=== PATIENT | male | born 1945 | race Caucasian/White ===

== ENCOUNTER 2016-03-10 00:02 | Observation (INO) | payer MEDICARE ==
[2016-03-10] VITALS (9 sets, daily range): BP systolic 113–155; BP diastolic 61–75; PULSE 52–149; RESP 16–20; TEMP 98.6; O2SAT 95–98
[~2016-03-10] VITALS: Ht 177.8 cm; Wt 90.0 kg
[~2016-03-10 00:02] MED LIST: GLIM4TAB PO; LANTUS2P SQ; METF1000 PO
[2016-03-10] MEDS ORDERED: SODIUM CHLORIDE 0.9% FLUSH 5 ML FLUSH IVF PRN (00:30)
[2016-03-10] MEDS ORDERED: DILTIAZEM INJ 125 MG in SODIUM CHLORIDE 0.9% INJ 100 ML IV SCH (00:30)
[2016-03-10] MEDS ORDERED: DILTIAZEM HCL 25 MG/5 ML VIAL IV ONE ×2 (00:30)
[2016-03-10 00:43] LABS: AUTOMATED NEUTROPHIL # 4.5 TH/MM3 (1.8-7.7); BASOPHIL # 0.2 TH/MM3 (0-0.2); BASOPHIL % 2.3 % (0.0-2.0); EOSINOPHIL # 0.2 TH/MM3 (0-0.4); EOSINOPHIL % 1.8 % (0.0-4.0); HEMATOCRIT 40.2 % (39.0-51.0); HEMO FLAGS DIFF FINAL; LYMPH % 37.5 % (9.0-44.0); LYMPHOCYTE # 3.3 TH/MM3 (1.0-4.8); MEAN CELL VOLUME 96.4 FL (80.0-100.0); MEAN CORPUSCULAR HEMOGLOBIN 33.1 PG (27.0-34.0); MEAN CORPUSCULAR HGB CONC 34.4 % (32.0-36.0); MONO % 7.8 % (0.0-8.0); NEUT % 50.6 % (16.0-70.0); PLATELET COUNT 333 TH/MM3 (150-450); RED BLOOD COUNT 4.16 MIL/MM3 (4.50-5.90); RED CELL DISTRIBUTION WIDTH 14.1 % (11.6-17.2); WHITE BLOOD COUNT 8.8 TH/MM3 (4.0-11.0)
--- NOTE | 2016-03-10 00:53 | RADRPT ---
EXAM DATE/TIME: 03/10/2016 00:38 [facility] COMPARISON: No previous studies available for comparison. INDICATIONS : Palpitations. MEDICAL HISTORY : AFIB, Diabetes SURGICAL HISTORY : None. ENCOUNTER: Initial ACUITY: 2 days PAIN SCORE: 0/10 LOCATION: Bilateral chest FINDINGS: A single view of the chest demonstrates the lungs to be symmetrically aerated without evidence of mas s, infiltrate or effusion. The cardiomediastinal contours are unremarkable. Osseous structures are intact. CONCLUSION: Normal examination for a patient of this age. Storm Day MD on March 10, 2016 at 0:52 Board Certified Radiologist. This report was verified electronically.
[2016-03-10 00:54] LABS: APTT (PATIENT) 27.3 SEC (24.3-30.1); PROTHROMBIN TIME - PATIENT 10.7 SEC (9.8-11.6)
[2016-03-10 01:08] LABS: ANION GAP 10 MEQ/L (5-15); BICARBONATE 25.8 MEQ/L (21.0-32.0); BLOOD UREA NITROGEN 10 MG/DL (7-18); CHLORIDE 107 MEQ/L (98-107); GLOMERULAR FILTRATION RATE 110 ML/MIN (>89); MAGNESIUM 1.8 MG/DL (1.5-2.5); POTASSIUM 3.3 MEQ/L (3.5-5.1); SODIUM (NA) 143 MEQ/L (136-145)
--- NOTE | 2016-03-10 01:25 | PD ---
HPI Chief Complaint: Cardiac Complaint Time Seen by Provider: 00:26 Travel History International Travel<30 days: No Contact w/Intl Traveler<30days: No Traveled to known affect area: No History of Present Illness HPI 62-year-old male arrives here complaining of palpitations. This started about one half hours prior to ER arrival. Started at rest. He reports a very mild retrosternal chest discomfort. He reports history of atrial fibrillation about 10 years ago. It was managed in the ER where he was treated he was discharged home. He reports taking medication for about 1 year afterward, however is unsure of the name. Today was a normal day for the patient. He denies any recent illness. Follow-up with Dr. Oliveros. [facility] Past Medical History Arthritis: Yes Atrial Fibrillation: Yes Cancer: No Cardiovascular Problems: No High Cholesterol: Yes COPD: Yes Diabetes: Yes Patient Takes Glucophage: Yes Diminished Hearing: Yes Endocrine: Yes Gastrointestinal Disorders: Yes (GERD) Genitourinary: No Hepatitis: Yes (MORTICIAN) Hiatal Hernia: No Hypertension: Yes Immune Disorder: No Musculoskeletal: No Neurologic: No Psychiatric: No Reproductive: No Respiratory: No Thyroid Disease: No Tetanus Vaccination: Unknown Influenza Vaccination: Yes Past Surgical History AICD: No Genitourinary Surgery: No Joint Replacement: No Pacemaker: No Other Surgery: Yes Social History Alcohol Use: No Tobacco Use: No Substance Use: No Allergies-Medications (Allergen,Severity, Reaction): Coded Allergies: Shellfish (Verified Allergy, Unknown, 03/10/16) NOT ALLERGIC TO INDIVIDUAL SHELLFISH--DYSPNEA & HIVES WITH KANA MELCHOR TWICE Reported Meds & Prescriptions Reported Meds & Active Scripts Active Reported Metformin (Metformin HCl) 1,000 Mg Tab 1,000 Mg PO BIDPC 90 Days With meals Lantus Inj (Insulin Glargine) 1,000 Unit/10 Ml Vial 50 Units SQ DIRECTED Glimepiride 4 Mg Tab 4 Mg PO DAILY Take with breakfast or first main meal Review of Systems Except as stated in HPI: all other systems reviewed are Neg Physical Exam Narrative GENERAL: 70 yo M WNWD NAD SKIN: Warm and dry. HEAD: Atraumatic. Normocephalic. EYES: Pupils equal and round. No scleral icterus. No injection or drainage. ENT: No nasal bleeding or discharge. Mucous membranes pink and moist. NECK: Trachea midline. No JVD. CARDIOVASCULAR: Tachycardia. Irregular. RESPIRATORY: No accessory muscle use. Clear to auscultation. Breath sounds equal bilaterally. GASTROINTESTINAL: Abdomen soft, non-tender, nondistended. Hepatic and splenic margins not palpable. MUSCULOSKELETAL: Extremities without clubbing, cyanosis, or edema. No obvious deformities. NEUROLOGICAL: Awake and alert. No obvious cranial nerve deficits. Motor grossly within normal limits. Five out of 5 muscle strength in the arms and legs. Normal speech. PSYCHIATRIC: Appropriate mood and affect; insight and judgment normal. Data Data Last Documented VS Vital Signs Date Time Temp Pulse Resp B/P Pulse Ox O2 Delivery O2 Flow Rate FiO2 03/10/16 01:08 86 16 127/75 98 Room Air 03/10/16:17 98.6 VS reviewed Orders Electrocardiogram (03/10/16:26) Basic Metabolic Panel (Bmp) (03/10/16:26) Ckmb (Isoenzyme) Profile (03/10/16:) Complete Blood Count With Diff (03/10/16:) Magnesium (Mg) (03/10/16:) Prothrombin Time / Inr (Pt) (03/10/16:) Act Partial Throm Time (Ptt) (03/10/16:) Troponin I (03/10/16:) Chest, Single Ap (03/10/16:) Ecg Monitoring (03/10/16:26) Bilateral Bp Monitoring (03/10/16:) Iv Access Insert/Monitor (03/10/16:) Oximetry (03/10/16:) Oxygen Administration (03/10/16:26) Sodium Chloride 0.9% Flush (Ns Flush) (03/10/16 00:30) Diltiazem Inj (Cardizem Inj) (03/10/16 00:30) Diltiazem Inj (Cardizem Inj) (03/10/16 00:30) Diltiazem Inj (Cardizem Inj) (03/10/16 00:30) Potassium Chloride (Kcl) (03/10/16 01:30) Admit Order (Ed Use Only) (03/10/16 02:22) Thyroid Stimulating Hormone (03/10/16 00:30) Labs Laboratory Tests Test 03/10/16 00:30 White Blood Count 8.8 TH/MM3 Red Blood Count 4.16 MIL/MM3 Hemoglobin 13.8 GM/DL Hematocrit 40.2 % Mean Corpuscular Volume 96.4 FL Mean Corpuscular Hemoglobin 33.1 PG Mean Corpuscular Hemoglobin 34.4 % Concent Red Cell Distribution Width 14.1 % Platelet Count 333 TH/MM3 Mean Platelet Volume 7.9 FL Neutrophils (%) (Auto) 50.6 % Lymphocytes (%) (Auto) 37.5 % Monocytes (%) (Auto) 7.8 % Eosinophils (%) (Auto) 1.8 % Basophils (%) (Auto) 2.3 % Neutrophils # (Auto) 4.5 TH/MM3 Lymphocytes # (Auto) 3.3 TH/MM3 Monocytes # (Auto) 0.7 TH/MM3 Eosinophils # (Auto) 0.2 TH/MM3 Basophils # (Auto) 0.2 TH/MM3 CBC Comment DIFF FINAL Differential Comment Prothrombin Time 10.7 SEC Prothromb Time International 1.0 RATIO Ratio Activated Partial 27.3 SEC Thromboplast Time Sodium Level 143 MEQ/L Potassium Level 3.3 MEQ/L Chloride Level 107 MEQ/L Carbon Dioxide Level 25.8 MEQ/L Anion Gap 10 MEQ/L Blood Urea Nitrogen 10 MG/DL Creatinine 0.71 MG/DL Estimat Glomerular Filtration 110 ML/MIN Rate Random Glucose 76 MG/DL Calcium Level 9.2 MG/DL Magnesium Level 1.8 MG/DL Total Creatine Kinase 60 U/L Troponin I LESS THAN 0.02 NG/ML Thyroid Stimulating Hormone 3.460 uIU/ML 3rd Gen [facility] Medical Decision Making Medical Screen Exam Complete: Yes Emergency Medical Condition: Yes Medical Record Reviewed: Yes Differential Diagnosis NSTEMI, unstable angina, coronary vasospasm, PE, PTX, aortic dissection, pericarditis, myocarditis, endocarditis, PNA, esophageal disease, aneurysm, musculoskeletal etiologies, anxiety, cocaine/sympathomimetic abuse Narrative Course EKG reveals atrial fibrillation with rapid ventricular response at a rate of 140 repeat EKG sinus rate 85 q waves V1 and V2 CBC & BMP Diagram 03/10/16 00:30 Tn < 0.02 Coags 10.7 / 1.0 / 27.3 Last 24 hours Impressions Chest X-Ray 03/10/16 0026 Signed Impressions: Service Date/Time: Thursday, March 10, 2016 00:38 - CONCLUSION: Normal examination for a patient of this age. Storm Day MD The patient received diltiazem with good effect. He converted to sinus rhythm. He agrees to stay for evaluation by cardiology and possible initiation of rate control agent and anticoagulation. Diagnosis Primary Impression: Atrial fibrillation Qualified Code: I48.0 - Paroxysmal atrial fibrillation Admitting Information Admitting Physician Requests: Observation Nicho Lopez MD Mar 10, 2016 01:25
[2016-03-10] MEDS ORDERED: POTASSIUM CHLORIDE 20 MEQ CONTROLLED RELEASE TAB PO ONE (01:30)
[2016-03-10 01:35] LABS: CREATINE KINASE 60 U/L (39-308)
--- NOTE | 2016-03-10 02:25 | HHI.HP ---
HPI Service Family Medicine Primary Care Physician Guillermo Oliveros MD Admission Diagnosis Diagnoses: International Travel<30 Days: No Contact w/Intl Traveler<30days: No Known Affected Area: No History of Present Illness This is a 70 yo with a remote history of A-fib. He states approx 10 years ago he went into A-Fib, he was placed on unknown medication for a few months, then sates he no longer required the medications. He reports around 11:15pm he was having difficulty sleeping and felt that his heart was beating fast. He denies CP, but did feel discomfort. He denies SOB or any trouble breathing. Prior to this event he had been feeling like his normal health. In the ER patient was given a dose of cardizem and his rate converted to regular sinus, HR in the 80s. He currently feels well and is asking to go home. (Vaishali Copeland MD R3) Review of Systems Constitutional: DENIES: Fever Eyes: DENIES: Blurred vision, Diplopia Ears, nose, mouth, throat: DENIES: Tinnitus, Hearing loss Respiratory: DENIES: Cough Cardiovascular: COMPLAINS OF: Palpitations, DENIES: Chest pain, Dyspnea on Exertion Gastrointestinal: DENIES: Abdominal pain, Diarrhea, Nausea, Vomiting Genitourinary: DENIES: Urgency, Hematuria, Dysuria Musculoskeletal: COMPLAINS OF: Muscle aches, DENIES: Joint pain Integumentary: DENIES: Rash Hematologic/lymphatic: COMPLAINS OF: Bruising Neurologic: DENIES: Abnormal gait Psychiatric: DENIES: Mood changes (Vaishali Copeland MD R3) Past Family Social History Past Medical History - Type 2 diabetes mellitus - Dverticulosis - colonoscopy 2005 - biopsy showed changes of "early tubular adenoma" Past Surgical History - carpal tunnel release - arthroscoptic knee surgery - T&A - Patient believes he had a colonoscopy done less than 10 years ago with no significant findings reported Reported Medications Last Impressions Chest X-Ray 03/10/16 0026 Signed Impressions: Service Date/Time: Tuesday, March 10, 2016 00:38 - CONCLUSION: Normal examination for a patient of this age. Storm Day MD (Vaishali Copeland MD R3) Allergies: Coded Allergies: Shellfish (Verified Allergy, Unknown, 03/10/16) NOT ALLERGIC TO INDIVIDUAL SHELLFISH--DYSPNEA & HIVES WITH LOBSTER NEWBERG TWICE Family History Father: approx 89. 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 SKIN: No rashes, ecchymoses or lesions. Cool and dry. HEAD: Atraumatic. Normocephalic. No temporal or scalp tenderness. EYES: Pupils equal round and reactive. Extraocular motions intact. No scleral icterus. No injection or drainage. ENT: Nose without bleeding, purulent drainage or septal hematoma. Throat without erythema, tonsillar hypertrophy or exudate. Uvula midline. Airway patent. NECK: Trachea midline. No JVD or lymphadenopathy. Supple, nontender, no meningeal signs. CARDIOVASCULAR: Regular rate and rhythm without murmurs, gallops, or rubs. RESPIRATORY: Clear to auscultation. Breath sounds equal bilaterally. No wheezes , rales, or rhonchi. GASTROINTESTINAL: Abdomen soft, non-tender, nondistended. No hepato-splenomegaly , or palpable masses. No guarding. MUSCULOSKELETAL: Extremities without clubbing, cyanosis, or edema. No joint tenderness, effusion, or edema noted. No calf tenderness. Negative Homans sign bilaterally. NEUROLOGICAL: Awake and alert. Motor and sensory grossly within normal limits. Normal speech. Laboratory Laboratory Tests Test 03/10/16 00:30 White Blood Count 8.8 Red Blood Count 4.16 Hemoglobin 13.8 Hematocrit 40.2 Mean Corpuscular Volume 96.4 Mean Corpuscular Hemoglobin 33.1 Mean Corpuscular Hemoglobin 34.4 Concent Red Cell Distribution Width 14.1 Platelet Count 333 Mean Platelet Volume 7.9 Neutrophils (%) (Auto) 50.6 Lymphocytes (%) (Auto) 37.5 Monocytes (%) (Auto) 7.8 Eosinophils (%) (Auto) 1.8 Basophils (%) (Auto) 2.3 Neutrophils # (Auto) 4.5 Lymphocytes # (Auto) 3.3 Monocytes # (Auto) 0.7 Eosinophils # (Auto) 0.2 Basophils # (Auto) 0.2 CBC Comment DIFF FINAL Differential Comment Prothrombin Time 10.7 Prothromb Time International 1.0 Ratio Activated Partial 27.3 Thromboplast Time Sodium Level 143 Potassium Level 3.3 Chloride Level 107 Carbon Dioxide Level 25.8 Anion Gap 10 Blood Urea Nitrogen 10 Creatinine 0.71 Estimat Glomerular Filtration 110 Rate Random Glucose 76 Calcium Level 9.2 Magnesium Level 1.8 Total Creatine Kinase 60 Troponin I LESS THAN 0.02 (Vaishali Copeland MD R3) Result Diagram: 03/10/160 03/10/1629 Imaging Last Impressions Chest X-Ray 03/10/166 Signed Impressions: Service Date/Time: Thursday, March 10, 2016 00:38 - CONCLUSION: Normal examination for a patient of this age. Storm Day MD (Vaishali Copeland MD R3) Assessment and Plan Assessment and Plan 70 yo male presents to ER with new onset A-Fib, controlled after 1 dose of IV cardizem. Code Status DNR Discussed Condition With ER physician natali Muñiz (Vaishali Copeland MD R3) Attending Attestation Patient seen and examined. Case reviewed and discussed with the resident team. Agree with plan of care as discussed with me and documented in the resident note. he has been in NSR for many hours since the wee hours of the morning and wishes to go home today. Had a long discussion about a fib and the potential consequences and treatments. Explained that the more often someone goes into a fib the more likely they were to reenter that state. We also discussed and he is aware that there is an increased risk of CVA as well as rate control can be a problem if he goes back into a fib again. I explained if this was a problem that there is ablation and/or medicines to help prevent consequences of a fib. Dr Oliveros is his long trusted Physician and he will follow up with him. Also, Mr Cecy declared he was leaving the hospital "no matter what at about 3 pm and would not spend the night here even if Cardiology did not see him today. On discussion with Dr Alexander who is seeing him today, he can be given meds for rate control even if he leaves AMA as we do not want him to have any problems. ( Fanny James MD) Problem List: (1) Atrial fibrillation Status: Acute Plan: Patient with hx of A-fib in the past. Initial EKG does show A-Fib with RVR HR 150s. EKG after the cardizem is regular sinus with HR 80s. He is currently asx. Initial troponin 0.02. - CHADS2 vasc score 2, moderate risk - Started on therapeutic Lovenox, may consider xarelto if long tern anticoagulation needed - Currently rate controlled after Cardizem, BP & HR wnl - Metoprolol 25 mg PO BID initiated - telemetry - Cards consulted, does not have director of psychology - ECHO ordered - TSH ordered (2) Type 2 diabetes mellitus with unspecified complications Status: Chronic Plan: Continue home medications metformin and glimperide (3) FEN Status: Acute Plan: Fluids: HLIV Electrolytes: K 3.3, given 40 meq KCl Nutrition: Heart healthy diet DVT prophylaxis: lovenox (therapeutic) (Vaishali Copeland MD R3) Physician Certification 2 Midnight Certification Type: Admission for Inpatient Services Order for Inpatient Services The services are ordered in accordance with Medicare regulations or non- Medicare payer requirements, as applicable. In the case of services not specified as inpatient-only, they are appropriately provided as inpatient services in accordance with the 2-midnight benchmark. Estimated LOS (days): 2 days is the estimated time the patient will need to remain in the hospital, assuming treatment plan goals are met and no additional complications. Post-Hospital Plan: Home (Vaishali Copeland MD R3) Problem Qualifiers (1) Atrial fibrillation: Qualified Code: I48.0 - Paroxysmal atrial fibrillation Vaishali Copeland MD R3 Mar 10, 2016 02:25 Fanny James MD Mar 10, 2016 13:20
[2016-03-10] MEDS ORDERED: GLIMEPIRIDE 4 MG TAB PO SCH (09:00)
[2016-03-10] MEDS ORDERED: METOPROLOL TARTRATE 25 MG TAB PO SCH (09:00)
[2016-03-10] MEDS ORDERED: metFORMIN HCL 500 MG TAB PO SCH (09:00)
[2016-03-10] MEDS ORDERED: ENOXAPARIN SODIUM 100 MG/ML SYRINGE SQ SCH (09:00)
[2016-03-10] MEDS ORDERED: ASPI325T PO (13:09)
[2016-03-10] MEDS ORDERED: METO25TA3 PO (13:09)
--- NOTE | 2016-03-10 13:09 | HHI.DCPOC ---
Discharge Care Plan Diagnosis: (1) Atrial fibrillation Goals to Promote Your Health * To prevent worsening of your condition and complications * To maintain your health at the optimal level Directions to Meet Your Goals Take your medications as prescribed Follow your dietary instruction Follow activity as directed Keep your appointments as scheduled Take your immunizations and boosters as scheduled If your symptoms worsen call your PCP, if no PCP go to Urgent Care Center or Emergency Room Smoking is Dangerous to Your Health. Avoid second hand smoke Call the 24-hour hour crisis hotline for domestic abuse at Sylvester Alexander MD R3 Mar 10, 2016 13:09
--- NOTE | 2016-03-10 14:20 | EKG ---
Date Performed: 03/10/2016 Time Performed: 00:08:35 PTAGE: 70 years EKG: ATRIAL FIBRILLATION WITH RAPID VENTRICULAR RESPONSE BORDERLINE LEFT AXIS DEVIATION MODERATE ST DEPRESSION ABNORMAL ECG PREVIOUS TRACING : 03/13/2013 09.10 Since previous tracing, A fib with RVR is new. ST depressio n is new DOCTOR: Joe Morrison Interpretating Date/Time 03/10/2016 14:19:14
--- NOTE | 2016-03-10 14:20 | EKG ---
Date Performed: 03/10/2016 Time Performed: 01:05:34 PTAGE: 70 years EKG: Sinus rhythm WITH SINUS ARRHYTHMIA MARKED LEFT AXIS DEVIATION SEPTAL MYOCARDIAL INFARCTION ABNORMAL ECG INTERPRET ATION BASED ON A DEFAULT AGE OF 40 YEARS PREVIOUS TRACING : 03/10/2016 00.08 Since previous tracing, sinus rhythm has replaced a f ib. ST changes have resolved. DOCTOR: Joe Morrison Interpretating Date/Time 03/10/2016 14:18:41
--- NOTE | 2016-03-10 21:00 | EC ---
Study Study Date:03/10/2016 STUDY CONCLUSIONS SUMMARY LEFT VENTRICLE: The cavity size was normal. Systolic function was normal. The estimated ejection fraction was in the range of 65% to 70%. Wall motion was normal; there were no regional wall motion abnormalities. If LV function is below 40, please consider prescribing an ACEI or ARB or document rationale for non-use. PROCEDURE DATA STUDY STATUS: Elective. Procedure: Transthoracic echocardiography. Image quality was good. Scanning was performed from the parasternal, apical, and subcostal acoustic windows. Study completion: The patient tolerated the procedure well. Transthoracic echocardiography. M-mode, complete 2D, complete spectral Doppler, and color Doppler. Height: Height: 70in. Weight: Weight: 197.6lb. Body mass index: BMI: 28.4kg/m^2. Body surface area: BSA: 2.08m^2. Patient status: Inpatient. CARDIAC ANATOMY LEFT VENTRICLE: The cavity size was normal. Systolic function was normal. The estimated ejection fraction was in the range of 65% to 70%. Wall motion was normal; there were no regional wall motion abnormalities. AORTIC VALVE: The valve appears to be grossly normal. Doppler: There was no stenosis. No significant regurgitation. Valve area: 2.72cm^2(VTI). Indexed valve area: 1.31cm^2/m^2 (VTI). Valve area: 2.58cm^2 (Vmax). Indexed valve area: 1.24cm^2/m^2 (Vmax). Mean gradient: 3mm Hg (S). MITRAL VALVE: The valve appears to be grossly normal. Doppler: There was no evidence for stenosis. Trace regurgitation. Peak gradient: 2mm Hg (D). LEFT ATRIUM: The atrium was normal in size. RIGHT VENTRICLE: The cavity size was normal. PULMONIC VALVE: The valve appears to be grossly normal. Doppler: There was no evidence for stenosis. No significant regurgitation. TRICUSPID VALVE: The valve appears to be grossly normal. Doppler: There was no evidence for stenosis. Trace regurgitation. PERICARDIUM: There was no pericardial effusion. Patient weight: 197.6lb _Ejection fraction:_ 65-75% _Fractional shortening:_ 32% up to 5Kg 5-11.5Kg 11.6-22.9Kg 23-45Kg 45-57Kg Aortic Root 7-13 <17 13-22 17-27 17-27 LA diam 6-13 <23 24-38 33-47 37-40 RVID 10-17 7-15 7-15 7-18 8-17 LVIDd 12-22 <32 24-38 33-47 37-40 LVPW 2-4 3-6 5-7 6-8 7-8 IVS 2-4 3-6 5-7 6-8 7-8 BASIC MEASUREMENTS ADULT NORMAL Left ventricle LV internal dimension, ED, chordal 49 mm 43-52 level, PLAX LV internal dimension, ES, chordal 31.6 mm 23-38 level, PLAX Fractional shortening, chordal level, 36 % >29 PLAX LV posterior wall thickness, ED 8.79 mm IVS/LVPW ratio, ED 1 <1.3 Ventricular septum Septal thickness, ED 8.79 mm Aortic valve Leaflet separation 25 mm 15-26 Aorta Root diameter, ED 33 mm Left atrium Anterior-posterior dimension 32 mm Anterior-posterior dimension index 1.54 cm/m^2 <2.2 BASIC MEASUREMENTS ADULT NORMAL Aortic valve Leaflet separation 25 mm 15-26 DOPPLER MEASUREMENTS ADULT NORMAL Aortic valve Peak velocity, S 123 cm/s Mean velocity, S 80.7 cm/s VTI, S 21.5 cm Mean gradient, S 3 mm Hg Valve area, VTI 2.72 cm^2 Valve area index, VTI 1.31 cm^2/m^2 Valve area, Vmax 2.58 cm^2 Valve area index, Vmax 1.24 cm^2/m^2 Mitral valve Peak E-wave velocity 75 cm/s Peak A-wave velocity 86.9 cm/s Peak gradient, D 2 mm Hg Peak E/A ratio 0.9 Pulmonic valve Peak velocity, S 50.2 cm/s LEGEND: Mean values are shown as u=mean value. Asterisk (*) roe values outside specified normal range. Prepared and signed by Flako Lopez [id number]
[2016-03-11] MEDS ORDERED: METO25TA3 PO (12:19)
[2016-06-10] MEDS ORDERED: ZOSTINJ SQ (15:29)
[2016-06-18] MEDS ORDERED: METF1000 PO (11:25)
[2016-06-18] MEDS ORDERED: LANTUS2P SQ (11:25)
[2016-06-18] MEDS ORDERED: GLIM4TAB PO (11:25)
[2016-06-18] MEDS ORDERED: AZIT250T3 PO (15:38)
[2016-06-23] MEDS ORDERED: CEFU1TAB20 PO (10:29)
== END 2016-03-10 16:30 | disposition left against medical advice (07) ==
LOC: NEPC 00:02 → NEDA 02:24 → NEDH 06:35
PROVIDERS: ADMIT Family Medicine; ATTEND Family Medicine
DX: I48.0 Paroxysmal atrial fibrillation (principal); R00.2 Palpitations; R07.89 Other chest pain; K75.9 Inflammatory liver disease, unspecified; J44.9 Chronic obstructive pulmonary disease, unspecified; I10 Essential (primary) hypertension; E11.9 Type 2 diabetes mellitus without complications; K21.9 Gastro-esophageal reflux disease without esophagitis; Z87.891 Personal history of nicotine dependence; Z79.4 Long term (current) use of insulin
CPT/HCPCS: 71010; 80048; 82550; 83735; 83880; 84443; 84484; 85025; 85610; 85730; 93005; 93306; 96374; 99285; G0378; J1650

== ENCOUNTER 2017-03-02 14:40 | Emergency (ER) | payer MEDICARE ==
[~2017-03-02] VITALS: Ht 177.8 cm; Wt 95.0 kg
[~2017-03-02 14:40] MED LIST changes: +ASPI-183 PO; +AZIT250T3 PO; +CEFU1TAB20 PO; +ZOLP5TAB3 PO; +ZOSTINJ SQ
[2017-03-02 14:51] VITALS: BP 173/78; PULSE 99; RESP 17; TEMP 98.2; O2SAT 97
--- NOTE | 2017-03-02 15:35 | RADRPT ---
EXAM DATE/TIME: 03/02/2017 15:10 [facility] COMPARISON: No previous studies available for comparison. INDICATIONS : Right flank pain with history of renal stones. ORAL CONTRAST: No oral contrast ingested. RADIATION DOSE: 8.51 CTDIvol (mGy) MEDICAL HISTORY : Renal calculi. Chronic obstructive pulmonary disease. SURGICAL HISTORY : None. ENCOUNTER: Initial ACUITY: 1 day PAIN SCALE: 6/10 LOCATION: Right flank TECHNIQUE: Volumetric scanning of the abdomen and pelvis was performed. Using automated exposure control and ad justment of the mA and/or kV according to patient size, radiation dose was kept as low as reasonably achievable to obtain optimal diagnostic quality images. DICOM format image data is available electro nically for review and comparison. FINDINGS: LOWER LUNGS: The visualized lower lungs are clear. LIVER: Moderate to severe diffuse low density without lesion. There is no dilation of the biliary tree. No calcified gallstones. SPLEEN: Normal size without lesion. PANCREAS: Within normal limits. KIDNEYS: Normal in size and shape. There is no mass, stone, or hydronephrosis. There is a cyst of the left lo wer pole kidney measuring 6.2 cm. ADRENAL GLANDS: Within normal limits. VASCULAR: There is no aortic aneurysm. There is mild atherosclerotic disease. BOWEL/MESENTERY: Small hiatal hernia is present. Small bowel demonstrates no abnormality. Appendix is normal. There is diffuse colonic diverticulosis that is most severe in the sigmoid colon. Most of the sigmoid colon d emonstrates wall thickening and there is mild surrounding inflammatory change. In the left pelvis adj acent to the internal iliac vessels there is a soft tissue density measuring approximately 4 cm. No f ree air or free fluid is present. ABDOMINAL WALL: Within normal limits. RETROPERITONEUM: There is a single mildly enlarged left para-aortic lymph node measuring 10 mm in short axis diameter. No other lymphadenopathy is visualized. BLADDER: No wall thickening or mass. There are 2 stones in the left urinary bladder with the largest represent ing a giles stone measuring 1.3 x 0.7 cm. REPRODUCTIVE: Prostate gland is enlarged. INGUINAL: There is no lymphadenopathy or hernia. MUSCULOSKELETAL: There are mild degenerative changes of the lumbar spine. CONCLUSION: 1. Abnormal wall thickening, diverticulosis, and surrounding inflammatory change involving most of th e sigmoid colon. There is an abnormal soft tissue density masslike area in the left pelvis measuring 4 cm. It could represent phlegmonous inflammatory changes or lymphadenopathy. The appearance favors a n inflammatory or infectious process. However, malignancy cannot be completely excluded. Suggest andrei elating with the clinical history and suggest imaging followup and/or direct visualization with sigmo idoscopy or colonoscopy. 2. Nonacute findings include hepatic steatosis, moderate atherosclerotic disease, bladder stones, and prostatomegaly. Edy Knight MD on March 02, 2017 at 15:19 Board Certified Radiologist. This report was verified electronically.
[2017-03-02 16:13] LABS: WHITE BLOOD COUNT 7.2 TH/MM3 (4.0-11.0)
[2017-03-02 16:14] LABS: AUTOMATED NEUTROPHIL # 4.7 TH/MM3 (1.8-7.7); BASOPHIL # 0.2 TH/MM3 (0-0.2); BASOPHIL % 2.5 % (0.0-2.0); EOSINOPHIL # 0.1 TH/MM3 (0-0.4); EOSINOPHIL % 1.7 % (0.0-4.0); HEMATOCRIT 36.1 % (39.0-51.0); HEMOGLOBIN 12.3 GM/DL (13.0-17.0); LYMPH % 26.4 % (9.0-44.0); LYMPHOCYTE # 1.9 TH/MM3 (1.0-4.8); MEAN CELL VOLUME 100.4 FL (80.0-100.0); MEAN CORPUSCULAR HEMOGLOBIN 34.1 PG (27.0-34.0); MEAN PLATELET VOLUME 7.6 FL (7.0-11.0); MONO % 4.4 % (0.0-8.0); MONOCYTE # 0.3 TH/MM3 (0-0.9); PLATELET COUNT 446 TH/MM3 (150-450); RED BLOOD COUNT 3.59 MIL/MM3 (4.50-5.90); RED CELL DISTRIBUTION WIDTH 14.9 % (11.6-17.2)
[2017-03-02 16:15] LABS: BILIRUBIN, URINE NEG (NEG); BLOOD, URINE NEG (NEG); GLUCOSE,URINE 1000 mg/dL (NEG); KETONE, URINE NEG (NEG); MUCUS URINE FEW /lpf (OCC); NITRITE,URINE NEG (NEG); URINE COLOR YELLOW (YELLW/STRAW); URINE LEUKOCYTE ESTERASE NEG (NEG)
[2017-03-02 16:27] LABS: PROTHROMBIN TIME - PATIENT 10.5 SEC (9.8-11.6)
[2017-03-02 16:32] LABS: AST (GOT) 20 U/L (15-37); BICARBONATE 28.1 MEQ/L (21.0-32.0); BLOOD UREA NITROGEN 11 MG/DL (7-18); CALCIUM 8.9 MG/DL (8.5-10.1); CHLORIDE 101 MEQ/L (98-107); CREATININE 0.94 MG/DL (0.60-1.30); GLOMERULAR FILTRATION RATE 80 ML/MIN (>89); GLUCOSE,RANDOM 290 MG/DL (74-106); LIPASE 97 U/L (73-393); SODIUM (NA) 136 MEQ/L (136-145)
[2017-03-02 16:33] LABS: ALT (GPT) 34 U/L (12-78)
[2017-03-02 16:35] LABS: ALKALINE PHOSPHATASE 101 U/L (45-117); TOTAL BILIRUBIN ADULT 0.6 MG/DL (0.2-1.0); TOTAL PROTEIN 7.5 GM/DL (6.4-8.2)
[2017-03-02] MEDS ORDERED: IBUP-232 PO (18:03)
[2017-03-02] MEDS ORDERED: METR-1 PO (18:03)
[2017-03-02] MEDS ORDERED: CIPR-9 PO (18:03)
[2017-03-02 18:04] VITALS: BP 137/75; PULSE 86; RESP 16; O2SAT 97
--- NOTE | 2017-03-02 18:05 | PD ---
HPI Chief Complaint: Flank/Kidney Pain Time Seen by Provider: 17:55 Travel History International Travel<30 days: No Contact w/Intl Traveler<30days: No Traveled to known affect area: No History of Present Illness HPI 71-year-old male patient with history of kidney stones, presents to the ER today because he started having right flank pains which he initially rated at a 7 out of 10. He denies any fevers, vomiting, or any other symptoms. He states that the pain with waxing in waning. He states that it resolved now at his pain as currently 0. He denies any fevers, or other issues. Modifying Factors: None Associated Signs & Symptoms: Right flank pain, lower back pain Risk Factors: Kidney stone history PFSH Past Medical History Arthritis: Yes Atrial Fibrillation: Yes Cancer: No Cardiovascular Problems: No High Cholesterol: Yes COPD: Yes Diabetes: Yes Patient Takes Glucophage: No Diminished Hearing: Yes Endocrine: Yes Gastrointestinal Disorders: Yes (GERD) Genitourinary: No Hepatitis: Yes (MORTICIAN) Hiatal Hernia: No Hypertension: Yes Immune Disorder: No Musculoskeletal: No Neurologic: No Psychiatric: No Reproductive: No Respiratory: No Thyroid Disease: No Past Surgical History AICD: No Genitourinary Surgery: No Joint Replacement: No Pacemaker: No Other Surgery: Yes Social History Alcohol Use: No Tobacco Use: No Substance Use: No Allergies-Medications (Allergen,Severity, Reaction): Coded Allergies: shellfish derived (Unverified Allergy, Unknown, 09/29/16) NOT ALLERGIC TO INDIVIDUAL SHELLFISH--DYSPNEA & HIVES WITH KANA MELCHOR TWICE Reported Meds & Prescriptions Reported Meds & Active Scripts Active Lantus Inj (Insulin Glargine) 1,000 Unit/10 Ml Vial 50 Units SQ BID 90 Days Zolpidem (Zolpidem Tartrate) 5 Mg Tab 5 Mg PO HS PRN Cefuroxime (Cefuroxime Axetil) 500 Mg Tab 500 Mg PO BID Azithromycin 250 Mg Tab 250 Mg PO DIRECTED Take 2 tabs (500 mg) on day 1 then 1 tab daily x 4 days. Metformin (Metformin HCl) 1,000 Mg Tab 1,000 Mg PO BIDPC With meals Glimepiride 4 Mg Tab 4 Mg PO DAILY Take with breakfast or first main meal Zostavax Inj (Zoster Vaccine Live) 0.65 Ml Inj 0.65 Ml SQ .ONCE Aspirin 325 Mg Tab 325 Mg PO DAILY Review of Systems Except as stated in HPI: all other systems reviewed are Neg Physical Exam Narrative GENERAL: Well-developed elderly white male patient currently in no acute distress. Awake an oriented 3. SKIN: Focused skin assessment warm/dry. HEAD: Atraumatic. Normocephalic. EYES: Pupils equal and round. No scleral icterus. No injection or drainage. ENT: No nasal bleeding or discharge. Mucous membranes pink and moist. NECK: Trachea midline. No JVD. Supple. CARDIOVASCULAR: Regular rate and rhythm. No murmur appreciated. RESPIRATORY: No accessory muscle use. Clear to auscultation. Breath sounds equal bilaterally. GASTROINTESTINAL: Abdomen soft, non-tender, nondistended. Hepatic and splenic margins not palpable. BACK: No CVA tenderness. No rash. No point tenderness on palpation of the spine. MUSCULOSKELETAL: No obvious deformities. No clubbing. No cyanosis. No edema. NEUROLOGICAL: Awake and alert. No obvious cranial nerve deficits. Motor grossly within normal limits. Normal speech. PSYCHIATRIC: Appropriate mood and affect; insight and judgment normal. Data Data Last Documented VS Vital Signs Date Time Temp Pulse Resp B/P (MAP) Pulse Ox O2 Delivery O2 Flow Rate FiO2 03/02/17 14:51 98.2 99 17 173/78 (109) 97 Orders Orders Complete Blood Count With Diff (03/02/17 14:51) Comprehensive Metabolic Panel (03/02/17 14:51) Urinalysis - C+S If Indicated (03/02/17 14:51) Ct Abd/Pel W/O Iv Contrast (03/02/17 14:51) Lipase (03/02/17 14:51) Act Partial Throm Time (Ptt) (03/02/17 14:51) Prothrombin Time / Inr (Pt) (03/02/17 14:51) Labs Laboratory Tests Test 03/02/17 15:24 White Blood Count 7.2 TH/MM3 Red Blood Count 3.59 MIL/MM3 Hemoglobin 12.3 GM/DL Hematocrit 36.1 % Mean Corpuscular Volume 100.4 FL Mean Corpuscular Hemoglobin 34.1 PG Mean Corpuscular Hemoglobin Concent 34.0 % Red Cell Distribution Width 14.9 % Platelet Count 446 TH/MM3 Mean Platelet Volume 7.6 FL Neutrophils (%) (Auto) 65.0 % Lymphocytes (%) (Auto) 26.4 % Monocytes (%) (Auto) 4.4 % Eosinophils (%) (Auto) 1.7 % Basophils (%) (Auto) 2.5 % Neutrophils # (Auto) 4.7 TH/MM3 Lymphocytes # (Auto) 1.9 TH/MM3 Monocytes # (Auto) 0.3 TH/MM3 Eosinophils # (Auto) 0.1 TH/MM3 Basophils # (Auto) 0.2 TH/MM3 CBC Comment DIFF FINAL Differential Comment Prothrombin Time 10.5 SEC Prothromb Time International Ratio 1.0 RATIO Activated Partial Thromboplast Time 26.4 SEC Urine Color YELLOW Urine Turbidity CLEAR Urine pH 5.0 Urine Specific [place] 1.026 Urine Protein NEG mg/dL Urine Glucose (UA) 1000 mg/dL Urine Ketones NEG mg/dL Urine Occult Blood NEG Urine Nitrite NEG Urine Bilirubin NEG Urine Urobilinogen LESS THAN 2.0 MG/DL Urine Leukocyte Esterase NEG Urine WBC 1 /hpf Urine Mucus FEW /lpf Microscopic Urinalysis Comment CULT NOT INDICATED Blood Urea Nitrogen 11 MG/DL Creatinine 0.94 MG/DL Random Glucose 290 MG/DL Total Protein 7.5 GM/DL Albumin 4.0 GM/DL Calcium Level 8.9 MG/DL Alkaline Phosphatase 101 U/L Aspartate Amino Transf (AST/SGOT) 20 U/L Alanine Aminotransferase (ALT/SGPT) 34 U/L Total Bilirubin 0.6 MG/DL Sodium Level 136 MEQ/L Potassium Level 3.9 MEQ/L Chloride Level 101 MEQ/L Carbon Dioxide Level 28.1 MEQ/L Anion Gap 7 MEQ/L Estimat Glomerular Filtration Rate 80 ML/MIN Lipase 97 U/L [facility] Medical Decision Making Medical Screen Exam Complete: Yes Emergency Medical Condition: Yes Medical Record Reviewed: Yes Interpretation(s) Laboratory Tests Test 03/02/17 15:24 Red Blood Count 3.59 MIL/MM3 (4.50-5.90) Hemoglobin 12.3 GM/DL (13.0-17.0) Hematocrit 36.1 % (39.0-51.0) Mean Corpuscular Volume 100.4 FL (80.0-100.0) Mean Corpuscular Hemoglobin 34.1 PG (27.0-34.0) Basophils (%) (Auto) 2.5 % (0.0-2.0) Urine Glucose (UA) 1000 mg/dL (NEG) Urine Mucus FEW /lpf (OCC) Random Glucose 290 MG/DL (74-106) Estimat Glomerular Filtration Rate 80 ML/MIN (>89) Last 24 hours Impressions Abdomen/Pelvis CT 03/02/17 5171 Signed Impressions: Service Date/Time: Tuesday, March 02, 2017 15:10 - CONCLUSION: 1. Abnormal wall thickening, diverticulosis, and surrounding inflammatory change involving most of the sigmoid colon. There is an abnormal soft tissue density masslike area in the left pelvis measuring 4 cm. It could represent phlegmonous inflammatory changes or lymphadenopathy. The appearance favors an inflammatory or infectious process. However, malignancy cannot be completely excluded. Suggest correlating with the clinical history and suggest imaging followup and/or direct visualization with sigmoidoscopy or colonoscopy. 2. Nonacute findings include hepatic steatosis, moderate atherosclerotic disease, bladder stones, and prostatomegaly. Edy Knight MD Differential Diagnosis Renal colic versus pyelonephritis versus musculoskeletal versus cholecystitis versus other acute intra-abdominal processes Narrative Course Lab work did not show any signs of significant UTI or significant metabolic issues. He has mildly elevated glucose levels. CAT scans did not show any kidney stones, does show some signs of inflammation around the diverticulosis in the sigmoid area. I suspect underlying diverticulitis. There is also a spotted left renal mass but patient has no tenderness on palpation in that area. This is not likely to be new. However, I have notified the patient that he will need further follow-up for this issue. I do not see any signs of other acute intra-abdominal processes. Vital signs are stable. Patient has walking around in completely pain-free now. Abdomen is not tender. My plan would be to release him at this point with follow-up to primary care physician. We will treat him for diverticulitis. Return for any worsening in pain or new symptoms as needed. The plan has been discussed with him in he states understanding. Diagnosis Primary Impression: Abdominal pain Med/Other Pt SpecificInfo: Prescription(s) given Scripts Metronidazole (Flagyl) 500 Mg Tab 500 MG PO TID for Infection for 7 Days, TAB 0 Refills Prov: Kin Cueto MD 03/02/17 Ibuprofen (Ibuprofen) 600 Mg Tab 600 MG PO Q6H Y for Pain/Inflammation, #20 TAB 0 Refills Prov: Kin Cueto MD 03/02/17 Ciprofloxacin (Cipro) 500 Mg Tab 500 MG PO BID for Infection for 7 Days, #14 TAB 0 Refills Prov: Kin Cueto MD 03/02/17 Disposition: 01 DISCHARGE HOME Condition: Stable Kin Cueto MD Mar 02, 2017 18:05
== END 2017-03-02 18:45 | disposition home or self-care (01) ==
LOC: NEPC 14:40
DX: K57.90 Diverticulosis of intestine, part unspecified, without perforation or abscess without bleeding (principal); K76.0 Fatty (change of) liver, not elsewhere classified; N21.0 Calculus in bladder; N40.0 Benign prostatic hyperplasia without lower urinary tract symptoms; M19.90 Unspecified osteoarthritis, unspecified site; I48.91 Unspecified atrial fibrillation; E11.9 Type 2 diabetes mellitus without complications; I10 Essential (primary) hypertension; J44.9 Chronic obstructive pulmonary disease, unspecified
CPT/HCPCS: 74176; 80053; 81001; 83690; 85025; 85610; 85730; 99284